=== PATIENT | male | born 1970 | race Caucasian/White ===

== ENCOUNTER 2017-11-21 13:20 | Emergency (ER) | payer BC ==
[~2017-11-21] VITALS: Ht 185.4 cm; Wt 81.6 kg
[~2017-11-21 13:20] MED LIST: 'PARAFON FORTE500 M1 PO; CYCLOBENZAPRINE5 M3 PO; HYDROCODONE BIT1 T11 PO; Motrin,Rufen800 MG PO; NAPROSYN500 MG PO; NORCO 325 MG-51 TAB PO; PARAFON FORTE500 MG PO; PERCOCET 325 MG1 TA2 PO
[2017-11-21] MEDS ORDERED: ROBAXIN500 M1 PO (15:07)
[2017-11-21] MEDS ORDERED: MEDROL DOSEPAK4 MG PO (15:07)
== END 2017-11-21 15:10 | disposition home or self-care (01) ==
LOC: ED 13:20
DX: S16.1XXA Strain of muscle, fascia and tendon at neck level, initial encounter (principal); Z88.0 Allergy status to penicillin; Z88.1 Allergy status to other antibiotic agents; Z90.49 Acquired absence of other specified parts of digestive tract; X58.XXXA Exposure to other specified factors, initial encounter; Y93.89 Activity, other specified; Y92.89 Other specified places as the place of occurrence of the external cause; Y99.8 Other external cause status

== ENCOUNTER 2017-12-08 14:17 | Emergency (ER) | payer BC ==
[~2017-12-08] VITALS: Ht 185.4 cm; Wt 81.6 kg
[~2017-12-08 14:17] MED LIST changes: +MEDROL DOSEPAK4 MG PO; +ROBAXIN500 M1 PO
[2017-12-08] MEDS ORDERED: CYCLOBENZAPRINE5 M3 PO (16:32)
== END 2017-12-08 16:57 | disposition left against medical advice (07) ==
LOC: ED 14:17
DX: M47.812 Spondylosis without myelopathy or radiculopathy, cervical region (principal); Z88.0 Allergy status to penicillin; Z88.1 Allergy status to other antibiotic agents

== ENCOUNTER 2018-01-24 08:17 | Emergency (ER) | payer BC ==
[~2018-01-24] VITALS: Ht 185.4 cm; Wt 83.9 kg
--- NOTE | ~2018-01-24 | EKG ---
[place], [place] ELECTROCARDIOGRAM REPORT NAME: ASHLY PRO UNIT #: [id number] ROOM: DOCTOR: EPIPHANY DRAFT REPORT BIRTHDATE: [birth year] [facility] Test Date: 2018-01-24 Test Time: 09:08:46 Pat Name: ASHLY PRO Department: Room: Gender: Client Resolution Specialist: Yane Pena : 1970 Requested By: GOOD LIEBERMAN Order Number: [id number] Reading MD: Andrew Deleon MD Measurements Intervals [place] Rate: 63 P: 70 [place]: 141 QRS: 45 QRSD: 85 T: 55 QT: 391 QTc: 401 Interpretive Statements Sinus rhythm Probable left atrial enlargement No previous ECG available for comparison Electronically Signed On 01-24-2018 11:50:48 PST by Andrew Deleon MD CM:EKGRPT:ELECTROCARDIOGRAM REPORT [id number] GOOD HUBBARD DRAFT REPORT GOOD LIEBERMAN M.D.
[2018-01-24] MEDS ORDERED: ADVIL200 M1 PO (08:31)
[2018-01-24 09:10] LABS: BASO # 0.1 10*3/uL (0.0-0.1); EOS # 0.1 10*3/uL (0.0-0.4); EOS % 1.6 % (1.0-4.0); HEMATOCRIT 48.7 % (42.0-52.0); HEMOGLOBIN 16.3 g/dl (14.0-18.0); LYMPH # 1.3 10*3/uL (1.3-4.4); LYMPH % 18.3 % (27.0-41.0); MEAN CELL VOLUME 86.7 fl (80.0-94.0); MEAN CORPUSCULAR HGB CONC 33.5 g/dl (33.0-37.0); MEAN PLATELET VOLUME 9.8 fl (9.6-12.3); MONO # 0.5 10*3/uL (0.1-1.0); MONO % 7.1 % (3.0-9.0); NEUT # 5.2 10*3/uL (2.3-7.9); NEUT % 71.7 % (47.0-73.0); PLATELET COUNT AUTOMATED 203 10*3/uL (130-400); RED BLOOD COUNT 5.62 10*6/uL (4.50-5.90); RED CELL DISTRI WIDTH 13.2 % (0-14.5); WHITE BLOOD COUNT 7.3 10*3/uL (4.8-10.8)
[2018-01-24 09:24] LABS: ALBUMIN 3.7 gm/dl (3.1-4.5); ALKALINE PHOSPHATASE 118 U/L (45-117); BUN 17 mg/dl (7-24); CHLORIDE 107 mmol/L (98-107); CREATININE 1.46 mg/dL (0.70-1.30); POTASSIUM 4.2 mmol/L (3.5-5.1); SGOT/AST 15 IU/L (3-35); SGPT/ALT 23 U/L (12-78); SODIUM 138 mmol/L (136-145); TOTAL PROTEIN 7.3 gm/dL (6.4-8.2)
[2018-01-24 09:26] LABS: TROPONIN I < 0.015 ng/ml (<0.045)
== END 2018-01-24 12:56 | disposition home or self-care (01) ==
LOC: ED 08:17
PROVIDERS: Emergency Medicine
DX: R07.9 Chest pain, unspecified (principal); M54.2 Cervicalgia; M54.6 Pain in thoracic spine; R61 Generalized hyperhidrosis; H93.13 Tinnitus, bilateral; R07.89 Other chest pain; R20.0 Anesthesia of skin; R20.2 Paresthesia of skin; F17.210 Nicotine dependence, cigarettes, uncomplicated; Z88.0 Allergy status to penicillin; Z88.1 Allergy status to other antibiotic agents

== ENCOUNTER 2018-01-26 08:33 | Emergency (ER) | payer BC ==
[~2018-01-26] VITALS: Ht 185.4 cm; Wt 83.9 kg
--- NOTE | ~2018-01-26 | EKG ---
[place], [place] ELECTROCARDIOGRAM REPORT NAME: ASHLY PRO UNIT #: [id number] ROOM: DOCTOR: EPIPHANY DRAFT REPORT BIRTHDATE: [birth year] [facility] Test Date: 2018-01-26 Test Time: 08:39:09 Pat Name: ASHLY PRO Department: Room: Gender: Electrical Prospecting Operator: Windy Thakur : 1970 Requested By: GOOD LIEBEMRAN Order Number: [id number] Reading MD: Zak Meredith MD Measurements Intervals [place] Rate: 74 P: 77 [place]: 138 QRS: 40 QRSD: 80 T: 63 QT: 372 QTc: 413 Interpretive Statements Sinus rhythm Compared to ECG 01/24/2018 09:08:46 No significant changes Electronically Signed On 01-28-2018 7:20:20 PST by Zak Meredith MD CM:EKGRPT:ELECTROCARDIOGRAM REPORT [id number] GOOD HUBBARD DRAFT REPORT GOOD LIEBERMAN M.D.
[~2018-01-26 08:33] MED LIST changes: +ADVIL200 M1 PO
[2018-01-26 08:50] LABS: BASO # 0.1 10*3/uL (0.0-0.1); BASO % 0.9 % (0.0-1.0); EOS # 0.1 10*3/uL (0.0-0.4); EOS % 1.7 % (1.0-4.0); HEMATOCRIT 49.3 % (42.0-52.0); HEMOGLOBIN 16.8 g/dl (14.0-18.0); LYMPH # 1.7 10*3/uL (1.3-4.4); LYMPH % 23.5 % (27.0-41.0); MEAN CELL VOLUME 85.9 fl (80.0-94.0); MEAN CORPUSCULAR HGB 29.3 pg (27.0-31.0); MEAN CORPUSCULAR HGB CONC 34.1 g/dl (33.0-37.0); MEAN PLATELET VOLUME 9.9 fl (9.6-12.3); MONO # 0.6 10*3/uL (0.1-1.0); MONO % 7.8 % (3.0-9.0); NEUT # 4.6 10*3/uL (2.3-7.9); NEUT % 65.8 % (47.0-73.0); PLATELET COUNT AUTOMATED 220 10*3/uL (130-400); RED BLOOD COUNT 5.74 10*6/uL (4.50-5.90); RED CELL DISTRI WIDTH 13.2 % (0-14.5)
[2018-01-26 09:05] LABS: ALKALINE PHOSPHATASE 110 U/L (45-117); BUN 18 mg/dl (7-24); CHLORIDE 110 mmol/L (98-107); CREATININE 1.39 mg/dL (0.70-1.30); SGOT/AST 14 IU/L (3-35); SGPT/ALT 25 U/L (12-78); SODIUM 141 mmol/L (136-145); TOTAL PROTEIN 7.7 gm/dL (6.4-8.2)
[2018-01-26 09:07] LABS: TROPONIN I < 0.015 ng/ml (<0.045)
[2018-01-26] MEDS ORDERED: MEDROL DOSEPAK4 MG PO (10:54)
[2018-01-26] MEDS ORDERED: Motrin,Rufen800 MG PO (10:54)
== END 2018-01-26 11:06 | disposition home or self-care (01) ==
LOC: ED 08:33
PROVIDERS: Emergency Medicine
DX: M47.24 Other spondylosis with radiculopathy, thoracic region (principal); F17.200 Nicotine dependence, unspecified, uncomplicated; Z90.49 Acquired absence of other specified parts of digestive tract; Z88.0 Allergy status to penicillin; Z88.1 Allergy status to other antibiotic agents

== ENCOUNTER 2018-02-08 20:33 | Emergency (ER) | payer BC ==
[~2018-02-08] VITALS: Ht 185.4 cm; Wt 77.1 kg
--- NOTE | ~2018-02-08 | EKG ---
[place], [place] ELECTROCARDIOGRAM REPORT NAME: ASHLY PRO UNIT #: [id number] ROOM: DOCTOR: EPIPHANY DRAFT REPORT BIRTHDATE: [birth year] [facility] Test Date: 2018-02-08 Test Time: 20:33:28 Pat Name: ASHLY PRO Department: ER Room: 6 Gender: M Elevator Erector: Tristin Rausch : 1970 Requested By: HANNAH FUNEZ Order Number: [id number] Reading MD: Negro Singh MD Measurements Intervals [place] Rate: 106 P: 82 [place]: 131 QRS: 60 QRSD: 78 T: 63 QT: 336 QTc: 447 Interpretive Statements Sinus tachycardia Biatrial enlargement Borderline T wave abnormalities Compared to ECG 01/26/2018 08:39:09 Atrial abnormality now present T-wave abnormality now present Sinus rhythm no longer present Electronically Signed On 02-12-2018 11:08:12 PST by Negro Singh MD CM:EKGRPT:ELECTROCARDIOGRAM REPORT [id number] HANNAH FUNEZ MD EPIPHANY DRAFT REPORT HANNAH FUNEZ MD
--- NOTE | ~2018-02-08 | EKG ---
[place], [place] ELECTROCARDIOGRAM REPORT NAME: ASHLY PRO UNIT #: [id number] ROOM: DOCTOR: EPIPHANY DRAFT REPORT BIRTHDATE: [birth year] [facility] Test Date: 2018-02-08 Test Time: 23:30:58 Pat Name: ASHLY PRO Department: ER Room: 6 Gender: M Rpg Programmer Analyst: Tristin Rausch : 1970 Requested By: HANNAH FUNEZ Order Number: [id number] Reading MD: Negro Singh MD Measurements Intervals [place] Rate: 54 P: 71 [place]: 148 QRS: 38 QRSD: 81 T: 84 QT: 417 QTc: 396 Interpretive Statements Sinus rhythm Borderline T wave abnormalities Baseline wander in lead(s) V1 Compared to ECG 01/26/2018 08:39:09 T-wave abnormality now present Electronically Signed On 02-12-2018 11:08:58 PST by Negro Singh MD CM:EKGRPT:ELECTROCARDIOGRAM REPORT 1108 HANNAH FUNEZ MD EPIPHZACHARY DRAFT REPORT HANNAH FUNEZ MD
[2018-02-08 20:47] LABS: BASO # 0.1 10*3/uL (0.0-0.1); EOS # 0.2 10*3/uL (0.0-0.4); EOS % 1.9 % (1.0-4.0); HEMATOCRIT 47.2 % (42.0-52.0); HEMOGLOBIN 16.9 g/dl (14.0-18.0); LYMPH # 2.5 10*3/uL (1.3-4.4); LYMPH % 26.8 % (27.0-41.0); MEAN CORPUSCULAR HGB 29.7 pg (27.0-31.0); MEAN CORPUSCULAR HGB CONC 35.8 g/dl (33.0-37.0); MEAN PLATELET VOLUME 10.6 fl (9.6-12.3); MONO # 0.7 10*3/uL (0.1-1.0); MONO % 7.7 % (3.0-9.0); NEUT # 5.8 10*3/uL (2.3-7.9); NEUT % 62.4 % (47.0-73.0); PLATELET COUNT AUTOMATED 240 10*3/uL (130-400); RED BLOOD COUNT 5.69 10*6/uL (4.50-5.90); RED CELL DISTRI WIDTH 12.5 % (0-14.5); WHITE BLOOD COUNT 9.2 10*3/uL (4.8-10.8)
[2018-02-08 21:04] LABS: ACT PARTIAL THROMBO TIME 24.3 SECONDS (20.8-31.5); ALBUMIN 3.9 gm/dl (3.1-4.5); ALKALINE PHOSPHATASE 118 U/L (45-117); BUN 25 mg/dl (7-24); CHLORIDE 103 mmol/L (98-107); CREATININE 1.91 mg/dL (0.70-1.30); POTASSIUM 3.7 mmol/L (3.5-5.1); SGOT/AST 12 IU/L (3-35); SGPT/ALT 20 U/L (12-78); SODIUM 143 mmol/L (136-145); TOTAL PROTEIN 7.7 gm/dL (6.4-8.2)
[2018-02-08 21:05] LABS: TROPONIN I < 0.015 ng/ml (<0.045)
[2018-02-09] MEDS ORDERED: ATIVAN1 MG PO (00:03)
== END 2018-02-09 | disposition home or self-care (01) ==
LOC: ED 20:33
PROVIDERS: Emergency Medicine Emergency Medical Services
DX: F45.8 Other somatoform disorders (principal); F41.9 Anxiety disorder, unspecified; M54.9 Dorsalgia, unspecified; G89.29 Other chronic pain; F17.200 Nicotine dependence, unspecified, uncomplicated; Z88.0 Allergy status to penicillin; Z88.1 Allergy status to other antibiotic agents; Z98.890 Other specified postprocedural states

== ENCOUNTER → 2018-02-13 | Outpatient (CLI) | payer BC ==
[~2018-02-13] MED LIST changes: +ATIVAN1 MG PO
== END | disposition home or self-care (01) ==
LOC: CT 10:00
DX: R91.8 Other nonspecific abnormal finding of lung field (principal); F41.9 Anxiety disorder, unspecified; M54.5 Low back pain

== ENCOUNTER → 2018-02-14 | Outpatient (CLI) | payer BC | END | disposition home or self-care (01) | LOC: MRI 01:04 | DX: Z01.818 Encounter for other preprocedural examination (principal); M47.812 Spondylosis without myelopathy or radiculopathy, cervical region; M54.14 Radiculopathy, thoracic region; R25.2 Cramp and spasm; R20.0 Anesthesia of skin ==

== ENCOUNTER 2018-03-10 17:35 | Emergency (ER) | payer BC ==
[~2018-03-10] VITALS: Ht 187.9 cm; Wt 79.4 kg
[2018-03-15] MEDS ORDERED: Lopressor25 MG PO (01:16)
== END 2018-03-10 19:05 | disposition home or self-care (01) ==
LOC: ED 17:35
DX: R51 Headache (principal); Z88.0 Allergy status to penicillin; Z88.1 Allergy status to other antibiotic agents; Z79.899 Other long term (current) drug therapy

== ENCOUNTER 2018-03-24 01:38 | Inpatient (IN) | payer BC ==
[2018-03-24] VITALS (9 sets, daily range): BP systolic 110–166; BP diastolic 60–105
--- NOTE | ~2018-03-24 | EKG ---
[place], [place] ELECTROCARDIOGRAM REPORT NAME: ASHLY PRO UNIT #: [id number] ROOM: 511 DOCTOR: HAYDEE DRAFT REPORT BIRTHDATE: [birth year] [facility] Test Date: 2018-03-24 Test Time: 05:05:12 Pat Name: ASHLY PRO Department: Room: 511 Gender: M Facilitator: Shanel Cortes : 1970 Requested By: JACLYN MCCLAIN Order Number: [id number] Reading MD: Andrew Deleon MD Measurements Intervals [place] Rate: 61 P: 78 [place]: 156 QRS: 51 QRSD: 78 T: 81 QT: 415 QTc: 418 Interpretive Statements Sinus rhythm No change from earlier ECG this date Electronically Signed On 03-24-2018 16:04:53 PST by Andrew Deleon MD CM:EKGRPT:ELECTROCARDIOGRAM REPORT 0505 [id number] JACLYN PINO DRAFT REPORT JACLYN MCCLAIN DO
--- NOTE | ~2018-03-24 | EKG ---
[place], [place] ELECTROCARDIOGRAM REPORT NAME: ASHLY PRO UNIT #: [id number] ROOM: 511 DOCTOR: HAYDEE DRAFT REPORT BIRTHDATE: [birth year] [facility] Test Date: 2018-03-24 Test Time: 02:14:58 Pat Name: ASHLY PRO Department: Room: 511 Gender: M Airplane Rigger: Shanel Cortes : 1970 Requested By: JACLYN MCCLAIN Order Number: [id number] Reading MD: Andrew Deleon MD Measurements Intervals [place] Rate: 64 P: 78 [place]: 164 QRS: 42 QRSD: 76 T: 68 QT: 396 QTc: 409 Interpretive Statements Sinus rhythm Compared to ECG 03/15/2018 01:07:26 No significant changes Electronically Signed On 03-24-2018 15:47:37 PST by Andrew Deleon MD CM:EKGRPT:ELECTROCARDIOGRAM REPORT 0214 1547 JACLYN PINO DRAFT REPORT JACLYN MCCLAIN DO
--- NOTE | ~2018-03-24 | EKG ---
[place], [place] ELECTROCARDIOGRAM REPORT NAME: ASHLY PRO UNIT #: [id number] ROOM: 511 DOCTOR: HAYDEE DRAFT REPORT BIRTHDATE: [birth year] [facility] Test Date: 2018-03-24 Test Time: 12:17:19 Pat Name: ASHLY PRO Department: Room: 511 2 Gender: M Hand Paster: Windy Thakur : 1970 Requested By: TRUPTI ANTONIO Order Number: [id number] Reading MD: Andrew Deleon MD Measurements Intervals [place] Rate: 101 P: 81 [place]: 143 QRS: 11 QRSD: 74 T: 87 QT: 334 QTc: 433 Interpretive Statements Sinus tachycardia Consider right atrial enlargement Compared to earlier ECG this date, heart rate has increased Electronically Signed On 03-24-2018 16:07:08 PST by Andrew Deleon MD CM:EKGRPT:ELECTROCARDIOGRAM REPORT 1217 1607 TRUPTI HUBBARD DRAFT REPORT TRUPTI ANTONIO
--- NOTE | ~2018-03-24 | EKG ---
[place], [place] ELECTROCARDIOGRAM REPORT NAME: ASHLY PRO UNIT #: [id number] ROOM: 511 DOCTOR: HAYDEE DRAFT REPORT BIRTHDATE: [birth year] [facility] Test Date: 2018-03-24 Test Time: 07:56:40 Pat Name: ASHLY PRO Department: Room: 511 Gender: M Studio Set Up Worker: Windy Thakur : 1970 Requested By: JACLYN MCCLAIN Order Number: [id number] Reading MD: Andrew Deleon MD Measurements Intervals [place] Rate: 66 P: 69 [place]: 148 QRS: 42 QRSD: 75 T: 83 QT: 402 QTc: 422 Interpretive Statements Sinus rhythm Borderline T wave abnormalities No change from earlier ECG this date Electronically Signed On 03-24-2018 16:05:31 PST by Andrew Deleon MD CM:EKGRPT:ELECTROCARDIOGRAM REPORT 0756 1605 JACLYN PINO DRAFT REPORT JACLYN MCCLAIN DO
[~2018-03-24 01:38] MED LIST changes: +Lopressor25 MG PO
[2018-03-24 02:38] LABS: BASO # 0.1 10*3/uL (0.0-0.1); EOS # 0.4 10*3/uL (0.0-0.4); EOS % 4.1 % (1.0-4.0); HEMATOCRIT 46.1 % (42.0-52.0); HEMOGLOBIN 15.7 g/dl (14.0-18.0); LYMPH # 2.7 10*3/uL (1.3-4.4); LYMPH % 26.6 % (27.0-41.0); MEAN CELL VOLUME 85.8 fl (80.0-94.0); MEAN CORPUSCULAR HGB 29.2 pg (27.0-31.0); MEAN CORPUSCULAR HGB CONC 34.1 g/dl (33.0-37.0); MONO # 0.8 10*3/uL (0.1-1.0); MONO % 8.3 % (3.0-9.0); NEUT % 59.5 % (47.0-73.0); PLATELET COUNT AUTOMATED 266 10*3/uL (130-400); RED BLOOD COUNT 5.37 10*6/uL (4.50-5.90); RED CELL DISTRI WIDTH 12.6 % (0-14.5); WHITE BLOOD COUNT 10.1 10*3/uL (4.8-10.8)
[2018-03-24 02:48] LABS: ACT PARTIAL THROMBO TIME 26.2 SECONDS (20.8-31.5)
[2018-03-24 02:53] LABS: ALBUMIN 3.8 gm/dl (3.1-4.5); ALKALINE PHOSPHATASE 124 U/L (45-117); BUN 24 mg/dl (7-24); CHLORIDE 104 mmol/L (98-107); CREATININE 1.34 mg/dL (0.70-1.30); POTASSIUM 4.4 mmol/L (3.5-5.1); SGOT/AST 16 IU/L (3-35); SGPT/ALT 28 U/L (12-78); SODIUM 138 mmol/L (136-145); TOTAL PROTEIN 7.7 gm/dL (6.4-8.2)
[2018-03-24 02:55] LABS: TROPONIN I < 0.015 ng/ml (<0.045)
--- NOTE | 2018-03-24 04:30 | NUR ---
A 47, admitted to , under the services of SERAFIN Seay DO with a diagnosis of TIA. Chief complaint is ELEVATED B/P, PAIN,NUMBNESS. Patient arrived via ambulance from ER. Monitor applied. Initial assessment completed. Vital signs taken and recorded. SERAFIN SEAY DO notified of admission to the unit. Orders received. See assessment for past medical history, medications and allergies. Patient and/or family oriented to unit. [facility] visitation policy reviewed. Clothing/patient valuable form completed. CELESTE KERNS
[2018-03-24 05:27] LABS: BUN 23 mg/dl (7-24); CHLORIDE 107 mmol/L (98-107); CREATININE 1.38 mg/dL (0.70-1.30); SODIUM 139 mmol/L (136-145)
--- NOTE | 2018-03-24 07:50 | NUR ---
DR WOODY NOTIFIED OF CONSULT. NO NEW ORDERS RECEIVED.
--- NOTE | 2018-03-24 13:20 | NUR ---
PATIENT RECEIVED NORCO FOR CHEST PAIN/NECK PAIN RATED 6/10.
[2018-03-24 23:59] LABS: BILIRUBIN NEGATIVE (NEGATIVE); BLOOD TRACE-LYSED (NEGATIVE); CLARITY CLEAR (CLEAR); COLOR YELLOW (YELLOW); GLUCOSE NEGATIVE (NEGATIVE); KETONE NEGATIVE (NEGATIVE); LEUKO ESTERASE NEGATIVE (NEGATIVE); NITRITE NEGATIVE (NEGATIVE); PH 5.5 (5.0-9.0); SPECIFIC GRAVITY <= 1.005 (1.005-1.030); UROBILINOGEN 0.2 E.U./dl (0.2-1.0)
[2018-03-25] VITALS: BP 110/64
[2018-03-25 00:28] LABS: BACTERIA TRACE; EPITHELIAL CELLS 0-2
--- NOTE | 2018-03-25 01:47 | NUR ---
Requested and medicated with [place] for complaints of pain in neck and lower back, rated a 6-7/10 at 2015. [place] minimally effective to decrease neck and lower back pain to a 2-3/10. Will continue to monitor.
[2018-03-25 06:41] LABS: BASO # 0.1 10*3/uL (0.0-0.1); BASO % 0.4 % (0.0-1.0); EOS % 0.3 % (1.0-4.0); HEMATOCRIT 41.8 % (42.0-52.0); HEMOGLOBIN 14.1 g/dl (14.0-18.0); LYMPH # 2.7 10*3/uL (1.3-4.4); LYMPH % 17.1 % (27.0-41.0); MEAN CELL VOLUME 86.4 fl (80.0-94.0); MEAN CORPUSCULAR HGB 29.1 pg (27.0-31.0); MEAN CORPUSCULAR HGB CONC 33.7 g/dl (33.0-37.0); MONO # 1.2 10*3/uL (0.1-1.0); MONO % 7.6 % (3.0-9.0); NEUT # 11.6 10*3/uL (2.3-7.9); PLATELET COUNT AUTOMATED 249 10*3/uL (130-400); RED BLOOD COUNT 4.84 10*6/uL (4.50-5.90); RED CELL DISTRI WIDTH 12.9 % (0-14.5); WHITE BLOOD COUNT 15.7 10*3/uL (4.8-10.8)
[2018-03-25 07:02] LABS: BUN 27 mg/dl (7-24); CHLORIDE 106 mmol/L (98-107); SODIUM 138 mmol/L (136-145)
[2018-03-25 07:03] LABS: CREATININE 1.35 mg/dL (0.70-1.30)
--- NOTE | 2018-03-25 07:30 | NUR ---
ASSUMED CARE OF THIS PATIENT AT THIS TIME. RECEIVED REPORT FROM MILDRED Rizzo RN. PATIENT RESTING COMFORTABLY IN HIS BED. NO S/S OF DISTRESS, RESP EASY. CALL LIGHT WITHIN REACH.
[2018-03-25 08:55] VITALS: BP 124/72
--- NOTE | 2018-03-25 13:15 | NUR ---
Real Estate Processor in to talk to patient. Patient states lives at HOME with AND KIDS. There are SEVERAL steps in the home. Physician: MACY Pharmacy: [facility] Home health services: NONE Patient's level of ADLs: INDEPENDENT Patient has working utilities: YES DME: NONE Follow-up physician's appointment after d/c: WILL BE MADE BY HOSPITALIST NURSE DIRECTOR ON DISCHARGE Does patient want to access PORTAL?: NO Discharge plan PT LIVES AT HOME WITH HIS FAMILY AND IS INDEPENDENT IN CARE. CAN BE DISCHARGED TO HOME WHEN MEDICALLY STABLE.. MARILYN PALAFOX
[2018-03-25] MEDS ORDERED: NORVASC5 MG PO (15:59)
[2018-03-25] MEDS ORDERED: Lopressor25 MG PO (15:59)
[2018-03-25 16:00] VITALS: BP 142/48
--- NOTE | 2018-03-25 17:08 | NUR ---
Discharge instructions reviewed with patient/family. Patient receptive and verbalizes understanding. Follow-up care arranged. Written instructions given to patient/family. PATIENT AMBULATED FROM FLOOR, NO S/S OF DISTRESS. LEE ANN SAMUEL
[2018-03-26 13:08] LABS: CREATININE,URINE 43.4 mg/dL (Not Estab.); MICRO ALBUMIN/CRE RATIO <6.9 (0.0-30.0)
== END 2018-03-25 17:08 | disposition home or self-care (01) | DRG 552 ==
LOC: ED 01:38 → EDHOLD 03:30 → 5E 04:30
PROVIDERS: Internal Medicine; Internal Medicine Nephrology; Student in an Organized Health Care Education/Training Program; ADMIT Internal Medicine
DX: M47.22 Other spondylosis with radiculopathy, cervical region (principal); M79.2 Neuralgia and neuritis, unspecified; R73.03 Prediabetes; N18.3 Chronic kidney disease, stage 3 (moderate); R00.2 Palpitations; D72.829 Elevated white blood cell count, unspecified; I12.9 Hypertensive chronic kidney disease with stage 1 through stage 4 chronic kidney disease, or unspecified chronic kidney disease; R73.9 Hyperglycemia, unspecified; Z90.49 Acquired absence of other specified parts of digestive tract; F41.9 Anxiety disorder, unspecified; Z88.1 Allergy status to other antibiotic agents; Z88.2 Allergy status to sulfonamides; Z87.891 Personal history of nicotine dependence; Z79.899 Other long term (current) drug therapy

== ENCOUNTER 2018-04-06 20:06 | Emergency (ER) | payer BC ==
[~2018-04-06] VITALS: Ht 185.4 cm; Wt 77.1 kg
--- NOTE | ~2018-04-06 | EKG ---
[place], [place] ELECTROCARDIOGRAM REPORT NAME: ASHLY PRO UNIT #: [id number] ROOM: DOCTOR: EPIPHANY DRAFT REPORT BIRTHDATE: [birth year] [facility] Test Date: 2018-04-06 Test Time: 20:10:32 Pat Name: ASHLY PRO Department: er Room: 12 Gender: M Engine Research Engineer: Rhys Sofia : 1970 Requested By: KELSEA URIBE Order Number: [id number] Reading MD: Andrew Deleon MD Measurements Intervals [place] Rate: 87 P: 76 [place]: 146 QRS: 45 QRSD: 78 T: 68 QT: 353 QTc: 425 Interpretive Statements Sinus rhythm Compared to ECG 03/24/2018 12:17:19 Sinus tachycardia no longer present Electronically Signed On 04-07-2018 19:58:50 PST by Andrwe Deleon MD CM:EKGRPT:ELECTROCARDIOGRAM REPORT 09 57 KELSEA PINO DRAFT REPORT KELSEA URIBE DO
--- NOTE | ~2018-04-06 | EKG ---
[place], [place] ELECTROCARDIOGRAM REPORT NAME: ASHLY PRO UNIT #: [id number] ROOM: DOCTOR: EPIPHANY DRAFT REPORT BIRTHDATE: [birth year] [facility] Test Date: 2018-04-06 Test Time: 22:41:45 Pat Name: ASHLY PRO Department: ER Room: 12 Gender: M Retail Field Supervisor: Shanel Cortes : 1970 Requested By: KELSEA URIBE Order Number: [id number] Reading MD: Andrew Deleon MD Measurements Intervals [place] Rate: 75 P: 80 [place]: 143 QRS: 64 QRSD: 82 T: 79 QT: 374 QTc: 418 Interpretive Statements Sinus rhythm No change from earlier ECG this date Electronically Signed On 04-07-2018 20:01:29 PST by Andrew Deleon MD CM:EKGRPT:ELECTROCARDIOGRAM REPORT [id number] 00 KELSEA PINO DRAFT REPORT KELSEA URIBE DO
[~2018-04-06 20:06] MED LIST changes: +NORVASC5 MG PO
[2018-04-06 20:34] LABS: BASO # 0.1 10*3/uL (0.0-0.1); BASO % 0.8 % (0.0-1.0); EOS # 0.4 10*3/uL (0.0-0.4); EOS % 4.8 % (1.0-4.0); HEMATOCRIT 44.2 % (42.0-52.0); HEMOGLOBIN 15.1 g/dl (14.0-18.0); LYMPH # 2.4 10*3/uL (1.3-4.4); LYMPH % 28.1 % (27.0-41.0); MEAN CELL VOLUME 85.5 fl (80.0-94.0); MEAN CORPUSCULAR HGB 29.2 pg (27.0-31.0); MEAN CORPUSCULAR HGB CONC 34.2 g/dl (33.0-37.0); MEAN PLATELET VOLUME 9.8 fl (9.6-12.3); MONO # 0.5 10*3/uL (0.1-1.0); MONO % 5.5 % (3.0-9.0); NEUT # 5.1 10*3/uL (2.3-7.9); NEUT % 60.2 % (47.0-73.0); PLATELET COUNT AUTOMATED 263 10*3/uL (130-400); RED BLOOD COUNT 5.17 10*6/uL (4.50-5.90); RED CELL DISTRI WIDTH 12.5 % (0-14.5); WHITE BLOOD COUNT 8.5 10*3/uL (4.8-10.8)
[2018-04-06 20:49] LABS: ACT PARTIAL THROMBO TIME 25.6 SECONDS (20.8-31.5)
[2018-04-06 20:51] LABS: ALBUMIN 3.7 gm/dl (3.1-4.5); ALKALINE PHOSPHATASE 123 U/L (45-117); BUN 23 mg/dl (7-24); CHLORIDE 106 mmol/L (98-107); CREATININE 1.47 mg/dL (0.70-1.30); POTASSIUM 3.7 mmol/L (3.5-5.1); SGOT/AST 18 IU/L (3-35); SGPT/ALT 33 U/L (12-78); SODIUM 137 mmol/L (136-145); TOTAL PROTEIN 7.2 gm/dL (6.4-8.2)
[2018-04-06 20:54] LABS: TROPONIN I < 0.015 ng/ml (<0.045)
[2018-04-07] MEDS ORDERED: VISTARIL25 M2 PO (00:06)
== END 2018-04-07 00:35 | disposition home or self-care (01) ==
LOC: ED 20:06
PROVIDERS: Emergency Medicine
DX: F41.1 Generalized anxiety disorder (principal); R07.9 Chest pain, unspecified; R00.0 Tachycardia, unspecified; I12.9 Hypertensive chronic kidney disease with stage 1 through stage 4 chronic kidney disease, or unspecified chronic kidney disease; N18.3 Chronic kidney disease, stage 3 (moderate); Z88.0 Allergy status to penicillin; Z88.1 Allergy status to other antibiotic agents; Z79.899 Other long term (current) drug therapy; Z90.49 Acquired absence of other specified parts of digestive tract; Z87.891 Personal history of nicotine dependence

== ENCOUNTER 2018-04-19 18:07 | Emergency (ER) | payer BC ==
[~2018-04-19] VITALS: Ht 170.1 cm; Wt 77.1 kg
--- NOTE | ~2018-04-19 | EKG ---
[place], [place] ELECTROCARDIOGRAM REPORT NAME: ASHLY PRO UNIT #: [id number] ROOM: DOCTOR: EPIPHANY DRAFT REPORT BIRTHDATE: [birth year] [facility] Test Date: 2018-04-19 Test Time: 18:22:34 Pat Name: ASHLY PRO Department: Room: Gender: Rock Wool Applicator: : 1970 Requested By: GOOD LIEBERMAN Order Number: [id number] Reading MD: Measurements Intervals [place] Rate: 79 P: 75 [place]: 145 QRS: 24 QRSD: 77 T: 63 QT: 352 QTc: 404 Interpretive Statements Sinus rhythm Compared to ECG 04/06/2018 22:41:45 No significant changes CM:EKGRPT:ELECTROCARDIOGRAM REPORT [id number] GOOD HUBBARD DRAFT REPORT GOOD LIEBERMAN M.D.
[~2018-04-19 18:07] MED LIST changes: +VISTARIL25 M2 PO
[2018-04-19 19:39] LABS: BASO # 0.1 10*3/uL (0.0-0.1); BASO % 0.7 % (0.0-1.0); EOS # 0.2 10*3/uL (0.0-0.4); EOS % 2.2 % (1.0-4.0); HEMATOCRIT 44.6 % (42.0-52.0); HEMOGLOBIN 15.4 g/dl (14.0-18.0); LYMPH # 2.1 10*3/uL (1.3-4.4); LYMPH % 19.4 % (27.0-41.0); MEAN CELL VOLUME 85.6 fl (80.0-94.0); MEAN CORPUSCULAR HGB 29.6 pg (27.0-31.0); MEAN CORPUSCULAR HGB CONC 34.5 g/dl (33.0-37.0); MEAN PLATELET VOLUME 9.4 fl (9.6-12.3); MONO # 0.7 10*3/uL (0.1-1.0); MONO % 6.5 % (3.0-9.0); NEUT # 7.5 10*3/uL (2.3-7.9); NEUT % 70.4 % (47.0-73.0); PLATELET COUNT AUTOMATED 269 10*3/uL (130-400); RED BLOOD COUNT 5.21 10*6/uL (4.50-5.90); RED CELL DISTRI WIDTH 13.1 % (0-14.5); WHITE BLOOD COUNT 10.7 10*3/uL (4.8-10.8)
[2018-04-19 19:56] LABS: ALBUMIN 3.8 gm/dl (3.1-4.5); ALKALINE PHOSPHATASE 115 U/L (45-117); BUN 23 mg/dl (7-24); CHLORIDE 105 mmol/L (98-107); CREATININE 1.53 mg/dL (0.70-1.30); SGOT/AST 16 IU/L (3-35); SGPT/ALT 27 U/L (12-78); SODIUM 138 mmol/L (136-145); TOTAL PROTEIN 7.4 gm/dL (6.4-8.2)
[2018-04-19 19:57] LABS: POTASSIUM 4.2 mmol/L (3.5-5.1); TROPONIN I < 0.015 ng/ml (<0.045)
== END 2018-04-19 21:55 | disposition home or self-care (01) ==
LOC: ED 18:07
PROVIDERS: Emergency Medicine
DX: R53.1 Weakness (principal); H57.04 Mydriasis; R11.0 Nausea; R25.1 Tremor, unspecified; T43.215A Adverse effect of selective serotonin and norepinephrine reuptake inhibitors, initial encounter; I12.9 Hypertensive chronic kidney disease with stage 1 through stage 4 chronic kidney disease, or unspecified chronic kidney disease; N18.3 Chronic kidney disease, stage 3 (moderate); Z88.0 Allergy status to penicillin; Z88.1 Allergy status to other antibiotic agents; Z79.899 Other long term (current) drug therapy; Y92.098 Other place in other non-institutional residence as the place of occurrence of the external cause

== ENCOUNTER → 2018-04-23 | Outpatient (CLI) | payer BC | END | disposition home or self-care (01) | LOC: US 13:30 | DX: N50.3 Cyst of epididymis (principal); N44.04 Torsion of appendix epididymis; N50.9 Disorder of male genital organs, unspecified; R74.8 Abnormal levels of other serum enzymes; Z90.49 Acquired absence of other specified parts of digestive tract ==

== ENCOUNTER 2018-05-02 19:40 | Emergency (ER) | payer BC ==
--- NOTE | ~2018-05-02 | EKG ---
[place], [place] ELECTROCARDIOGRAM REPORT NAME: ASHLY PRO UNIT #: [id number] ROOM: DOCTOR: EPIPHANY DRAFT REPORT BIRTHDATE: [birth year] [facility] Test Date: 2018-05-02 Test Time: 20:14:47 Pat Name: ASHLY PRO Department: Room: Gender: Behavioral Health Consultant: Yane Pena : 1970 Requested By: JACLYN MCCLAIN Order Number: [id number] Reading MD: Zak Meredith MD Measurements Intervals [place] Rate: 74 P: 61 [place]: 147 QRS: 34 QRSD: 79 T: 62 QT: 373 QTc: 414 Interpretive Statements Sinus rhythm Normal ECG Compared to ECG 04/19/2018 18:22:34 No significant changes Electronically Signed On 05-05-2018 4:33:43 PST by Zak Meredith MD CM:EKGRPT:ELECTROCARDIOGRAM REPORT 13 [id number] JACLYN PINO DRAFT REPORT JACLYN MCCLAIN DO
[2018-05-02 20:26] LABS: BASO # 0.1 10*3/uL (0.0-0.1); BASO % 0.8 % (0.0-1.0); EOS # 0.3 10*3/uL (0.0-0.4); EOS % 3.4 % (1.0-4.0); HEMATOCRIT 44.2 % (42.0-52.0); LYMPH % 26.2 % (27.0-41.0); MEAN CELL VOLUME 86.3 fl (80.0-94.0); MEAN CORPUSCULAR HGB 29.3 pg (27.0-31.0); MEAN CORPUSCULAR HGB CONC 33.9 g/dl (33.0-37.0); MEAN PLATELET VOLUME 9.4 fl (9.6-12.3); MONO # 0.5 10*3/uL (0.1-1.0); MONO % 6.1 % (3.0-9.0); NEUT # 4.8 10*3/uL (2.3-7.9); NEUT % 62.8 % (47.0-73.0); PLATELET COUNT AUTOMATED 247 10*3/uL (130-400); RED BLOOD COUNT 5.12 10*6/uL (4.50-5.90); RED CELL DISTRI WIDTH 13.2 % (0-14.5); WHITE BLOOD COUNT 7.6 10*3/uL (4.8-10.8)
[2018-05-02 20:41] LABS: ALBUMIN 3.7 gm/dl (3.1-4.5); ALKALINE PHOSPHATASE 114 U/L (45-117); BUN 21 mg/dl (7-24); CHLORIDE 106 mmol/L (98-107); CREATININE 1.76 mg/dL (0.70-1.30); SGOT/AST 15 IU/L (3-35); SGPT/ALT 32 U/L (12-78); SODIUM 139 mmol/L (136-145); TOTAL PROTEIN 7.5 gm/dL (6.4-8.2)
[2018-05-02 20:48] LABS: TROPONIN I < 0.015 ng/ml (<0.045)
== END 2018-05-02 21:11 | disposition home or self-care (01) ==
LOC: ED 19:40
PROVIDERS: Student in an Organized Health Care Education/Training Program
DX: I12.9 Hypertensive chronic kidney disease with stage 1 through stage 4 chronic kidney disease, or unspecified chronic kidney disease (principal); N18.3 Chronic kidney disease, stage 3 (moderate); F41.9 Anxiety disorder, unspecified; M47.892 Other spondylosis, cervical region; Z88.0 Allergy status to penicillin; Z88.8 Allergy status to other drugs, medicaments and biological substances; Z88.1 Allergy status to other antibiotic agents; Z87.891 Personal history of nicotine dependence

== ENCOUNTER → 2018-05-09 | Outpatient (CLI) | payer BC | END | disposition home or self-care (01) | LOC: LAB 02:49 → CT 08:00 | DX: K57.30 Diverticulosis of large intestine without perforation or abscess without bleeding (principal); I10 Essential (primary) hypertension; R53.83 Other fatigue ==

== ENCOUNTER → 2018-05-11 | Outpatient (CLI) | payer BC ==
[2018-05-11 11:52] LABS: LDH 168 U/L (87-241)
[2018-05-11 11:56] LABS: BETA-HCG, TUMOR MARKER < 1.0 mIU/mL (<1)
[2018-05-12 09:06] LABS: PROSTATE SPECIFIC AG FREE 0.65 ng/mL
== END | disposition home or self-care (01) ==
LOC: LAB 00:15
PROVIDERS: Urology
DX: D40.0 Neoplasm of uncertain behavior of prostate (principal); N50.9 Disorder of male genital organs, unspecified